=== PATIENT | female | born 1950 | race African-American/Black ===

== ENCOUNTER → 2016-07-22 | Day surgery (SDC) | payer OTHER ==
[~2016-07-22] MED LIST: ADRENOID CAPSU1 EACH; ALBUTEROL17 GM INH; AMITIZA8 MCG PO; ANTIVERT; ARTHROTEC 751 TAB.E2 PO; ARTHROTEC EC 71 EAC1 PO; ASPIRIN; ASPIRIN81 M1 PO; ASPIRIN81 M2 PO; BENICAR HCT 40-1 TA1 PO; BENICAR HCT 40-1 TAB PO; BLOOD PRESSURE MED PO; CARDIZEM CD; CARTIA XT PO; CIPRO; CO Q-10200 MG PO; DEXILANT30 MG PO; DEXILANT60 MG PO; DILTIAZEM 24HR120 M1 PO; DILTIAZEM 24HR300 M2 PO; FLECTOR1 EACH TOP; FLECTOR1 EACH TP; FLOVENT DI50 MCG/DIS IH; FLOVENT DISKU100 MCG INH; GUAIFENESIN600 M1 PO; HYDRALAZINE HCL50 MG PO; IMDUR; IRON1 TA1 PO; ISOSORBIDE MONO10 MG PO; ISOSORBIDE MONO30 M1 PO; ISOSORBIDE1 GM; LEVAQUIN PO; LISINOPRIL20 MG PO; METOPROLOL PO; METOPROLOL SUC100 MG PO; MUCUS ER600 MG PO; NITROGLYGERIN0.4 MG SL; PREDNISONE1 MG PO; PREVACID 24HR15 MG PO; PRINIVIL40 MG PO; SINGULAIR PO; SYMBICORT INH; SYMBICORT80 INH; TOPROL XL; TOPROL XL100 MG PO; TYLENOL325 M1 PO; UNKNOWN BP MED PO; ZANTAC150 M1 PO; ZETIA PO; ZOCOR20 MG PO
--- NOTE | ~2016-07-22 | OR ---
Unit #: [id number] #: [id number] Patient: ANGELLA PINEDA [id number] [address] [address] [id number] MR#: [id number] NAME: ANGELLA PINEDA ROOM: Date of Procedure: 07/22/2016 Admission Date: 07/22/2016 Surgeon: Calin Hilliard M.D. : 1950 Attending Physician: Calin Hilliard M.D. Primary Care Physician: Bridgette Parkinson M.D. OPERATIVE REPORT PROCEDURES PERFORMED Esophagogastroduodenoscopy with biopsy, esophagogastroduodenoscopy with balloon dilatation, colonoscopy with snare polypectomy multiple. INDICATIONS FOR PROCEDURE The patient with history of dysphagia, also history of polyps undergoing evaluation with upper endoscopy and colonoscopy. MEDICATIONS Monitored anesthesia. POSTOPERATIVE FINDINGS 1. Esophageal ring along with a hiatal hernia was dilated to 20 mm. 2. Chronic appearing gastritis, biopsies taken. 3. Normal duodenum and distal duodenum. 4. Multiple polyps in ascending colon was 3, transverse was 1, rectum shows 1, all was 6 to 7 mm in size. They were snared and sent for histopathology separately. 5. Prep was good. PLAN 1. PPI to continue reflux precautions. 2. Repeat dilation if needed. 3. Colonoscopy in 3 years. DESCRIPTION OF PROCEDURE The patient was explained of the procedure, risks, and benefits along with risks and benefits of anesthesia. She was brought to the endoscopy room. Propofol anesthesia was given. Bite block was placed. The scope was passed down the mouth into esophagus, stomach, duodenum, and distal duodenum. Findings as described. Biopsies taken. Gently, I pulled the scope out. Esophagus was dilated with a 20 mm balloon successfully. She tolerated the procedure well. No major complications were seen. Dictated by... Shandra Joyce/yas TD: 07/23/2016 04:23 JOB #: [id number] Unit #: [id number] #: [id number] Patient: ANGELLA PINEDA CC: Bridgette Parkinson M.D. OPERATIVE REPORT X Calin Hilliard MD PROCEDURE OPERATIVE NOTE
== END | disposition home or self-care (01) ==
LOC: COPS 10:56
DX: Z12.11 Encounter for screening for malignant neoplasm of colon (principal); D12.0 Benign neoplasm of cecum; D12.2 Benign neoplasm of ascending colon; D12.8 Benign neoplasm of rectum; K63.5 Polyp of colon; K29.50 Unspecified chronic gastritis without bleeding; K22.2 Esophageal obstruction; K44.9 Diaphragmatic hernia without obstruction or gangrene; K21.9 Gastro-esophageal reflux disease without esophagitis; I25.2 Old myocardial infarction; J45.909 Unspecified asthma, uncomplicated; J44.9 Chronic obstructive pulmonary disease, unspecified; M19.90 Unspecified osteoarthritis, unspecified site; Z87.01 Personal history of pneumonia (recurrent); Z87.891 Personal history of nicotine dependence; Z91.011 Allergy to milk products; Z79.899 Other long term (current) drug therapy; Z98.890 Other specified postprocedural states
CPT/HCPCS: 88305; 88312; J2250